=== PATIENT | female | born 1990 | race Caucasian/White ===

== ENCOUNTER 2016-08-01 18:34 | Emergency (ER) | payer OTHER ==
--- NOTE | ~2016-08-01 | ER ---
PATIENT'S NAME: LAVON KINGHANIE [facility] AGE: 25 Y [address] ROOM: [place] [address] LOCATION: ED ADMIT DATE: 08/01/2016 ER/Outpatient Report DISCHARGE DATE: 08/01/2016 FAMILY PHYSICIAN: Kuldip Morley MD ATTENDING PHYSICIAN: Nicholas Hernandez CHIEF COMPLAINT: Left upper abdominal pain. HISTORY OF PRESENT ILLNESS: The patient states the pain has been present since Saturday. She presented to [facility] where she was seen by Dr. Christian. She states she has had a fever up to 99. She has not taken anything for this. She has a known history of constipation. Her symptoms do not seem to make any changes with her meals. She says it does not feel like her usual constipation issues. Labs at the clinic were concerning for an elevated white count and thus she was referred here for further evaluation. PAST MEDICAL HISTORY: Documented on the record and reviewed by me. SOCIAL HISTORY: Documented on the record and reviewed by me. MEDICATIONS: Documented on the record and reviewed by me. ALLERGIES: DOCUMENTED ON THE RECORD AND REVIEWED BY ME. REVIEW OF SYSTEMS: All systems were reviewed and negative except as noted in the HPI. PHYSICAL EXAMINATION: VITAL SIGNS: Blood pressure 134/76, pulse is 98, respiratory rate 16, temperature 98.7, SpO2 is 98% on room air. Pain is 0/10. GENERAL: Age-appropriate female, upright on the exam table, in no acute pain or distress. NEUROLOGIC: Awake and alert. GCS 15. No focal deficits. No asymmetry. HEENT: Normocephalic, atraumatic. Eyes are PERRL. Oropharynx clear. NECK: Supple. Trachea is midline. CHEST/HEART: Regular rate and rhythm with no murmurs. LUNGS: Clear to auscultation bilaterally. No rhonchi, wheezes, or rales. ABDOMEN: Soft with some slight tenderness in the left upper quadrant. No PATIENT'S NAME: DRAGAN KING [facility] AGE: 25 Y [address] ROOM: [place] [address] LOCATION: ED ADMIT DATE: 08/01/2016 ER/Outpatient Report DISCHARGE DATE: 08/01/2016 FAMILY PHYSICIAN: Kuldip Morley MD ATTENDING PHYSICIAN: Mary,Nicholas rebound, guarding, or masses. No tenderness to percussion. Bowel sounds are present. BACK: Normal to inspection and palpation. No flank tenderness. No CVA tenderness. EXTREMITIES: Warm and well perfused. No other abnormalities. SKIN: Clean, dry, and intact. LABORATORY DATA AND X-RAYS: Serum is negative. CT of the abdomen and pelvis was obtained, noncontrast. No acute abnormalities. No kidney stones. IMPRESSION: Left upper quadrant pain, not otherwise specified. EMERGENCY DEPARTMENT COURSE: The patient was seen and evaluated as above. Labs from prior to arrival were reviewed. She did have some hematuria, but no infection. The intermittent nature of the pain is most consistent with kidney stone. CT was nondiagnostic of stone. The location of her pain is unusual, not consistent with pancreatitis. No evidence of hepatobiliary disease on exam or labs. Her spleen appeared normal. In the CT, there is no abnormality of the lungs as well. The focal point nature of definite abdominal pain makes acute coronary syndrome unlikely. The patient was feeling acceptably well upon receipt of the news. Recommend follow up with PCP as needed. Recommend titrate the MiraLAX to single formed bowel movement daily. MD MINI ALLAN/jean pierre /[id number] d: 08/02/16 0401 t: 08/04/16811, OUTPATIENT REPORT
== END 2016-08-01 20:12 | disposition disaster alternative care site (69) ==
LOC: GMED 18:34
DX: R10.12 Left upper quadrant pain (principal); Z79.899 Other long term (current) drug therapy; Z79.3 Long term (current) use of hormonal contraceptives